=== PATIENT | female | born 1990 | race Caucasian/White ===

== ENCOUNTER 2016-08-28 09:26 | Emergency (ER) | payer BC ==
[2016-08-28] MEDS ORDERED: NS 0.9% 1000 ML* 1,000 ML IV ONE (09:47)
[2016-08-28 10:33] LABS: Hematocrit 38 % (35-47); Hemoglobin 12.8 g/dl (12.0-16.0); Mean Corpuscular HGB Conc 34 g/dl (31-36); Mean Corpuscular Hemoglobin 30 pg (27-31); Mean Corpuscular Volume 90 fL (80-97); Mean Platelet Volume 9 um3 (7.4-10.4); Red Blood Count 4.22 10^6/ul (4.0-5.4); Red Cell Distribution Width 13 % (10.5-15); White Blood Count 7.9 10^3/ul (3.5-10.8)
[2016-08-28 10:54] LABS: Urine Bacteria Absent (Absent)
--- NOTE | 2016-08-28 10:54 | RAD ---
INDICATION: Reported early . Bleeding COMPARISON: None TECHNIQUE: Transvaginal imaging was performed to assess possible early FINDINGS: In vitro stripe is mildly prominent measuring 1.9 cm There is no evidence of an intrauterine gestation and therefore in the setting of a positive test ectopic is not excluded. Suggest correlation with serial beta hCGs and follow-up ultrasonography. There is no adnexal mass. The right ovary measures 3.7 x 1.9 x 2.1 cm in the left 3.1 x 1.2 x 1.9 cm IMPRESSION: NO SONOGRAPHICALLY IDENTIFIABLE INTRAUTERINE GESTATION AND NO ADNEXAL MASS. SUGGEST CORRELATION WITH SERIAL BETA HCGS AND FOLLOW-UP SONOGRAPHY.
[2016-08-28 11:01] LABS: Albumin 3.9 g/dL (3.2-5.2); BUN/Creatinine Ratio 23.1 (8-20); C Reactive Protein 1.35 mg/L (< 5.00); Calcium 8.8 mg/dL (8.6-10.3); EGFR African American 117.7 (>60); EGFR Non-African American 91.5 (>60); Globulin 2.5 g/dL (2-4); Potassium 3.7 mmol/L (3.5-5.0); Total Bilirubin 0.3 mg/dL (0.2-1.0); Total Protein 6.4 g/dL (6.4-8.9)
[2016-08-28 11:02] LABS: Urine Bilirubin Negative (Negative); Urine Glucose Negative (Negative); Urine Nitrite Negative (Negative)
--- NOTE | 2016-08-28 12:24 | ED ---
Lisa Lopez Alok, scribed for Binh Santo MD on 08/28/16 at 1000 . - HPI Summary HPI Summary: 25 y/o female presents to the ED with abd cramping. This cramping is diffuse throughout the lower quadrant. Pt believes she is after taking home test (G/P/A = 2,1,0). Pt usually gets two menstrual periods per month and believes her LMP was either 07/30/16 or the end end June. Pt adds some vaginal bleeding and dizziness, but denies any N/V/D. Pt also denies tobacco, EtOH, or drug use. Pt states allergy to Amoxicillin. - History of Current Complaint Chief Complaint: EDUrogenitalProblems Stated Complaint: ABDOMINAL PAIN Time Seen by Provider: 08/28/16 09:42 Hx Obtained From: Patient Chief Complaint: Pain Onset/Duration: Started Hours Ago, Atraumatic, Still Present Timing: Constant Severity: Moderate Current Severity: Moderate Pain Intensity: 6 Location of Pain: Diffuse Character: Cramping Aggravating Factors: Nothing Alleviating Factors: Nothing Associated Signs and Symptoms: Positive: Vaginal Bleeding or Discharge, Other: - Dizziness. Negative: Nausea, Vomiting - Additional Pertinent History Maternal Blood Type and Rh: O Positive - Allergies/Home Medications Allergies/Adverse Reactions: Allergies Allergy/AdvReac Type Severity Reaction Status Date / Time Amoxicillin Allergy Hives Verified 08/28/16 09:37 Chocolate Allergy Rash Verified 08/28/16 09:37 Latex Allergy Hives Verified 08/28/16 09:37 PMH/Surg Hx/FS Hx/Imm Hx Endocrine/Hematology History: Denies: Hx Anticoagulant Therapy, Hx Blood Disorders, Hx Diabetes Cardiovascular History: Denies: Hx Congenital Heart Disease, Hx Deep Vein Thrombosis, Hx Hypertension , Hx Pacemaker/ICD Respiratory History: Reports: Hx Asthma Comment Only: Other Respiratory Problems/Disorders - mild asthma, no tx GI History: Denies: Hx Gastrointestinal Bleed, Hx Ulcer History: Denies: Hx Dialysis, Hx Renal Disease Sensory History: Denies: Hx Hearing Aid Neurological History: Reports: Hx Headaches, Other Neuro Impairments/Disorders - LYMES DISEASE, HEADACHES GETTING WORSE Psychiatric History: Reports: Hx Anxiety, Hx Depression - takes lexapro and wellbutrin Denies: Hx Panic Disorder, Hx Inpatient Treatment, Hx [facility] Tx - Surgical History Surgery Procedure, Year, and Place: TONSILECTOMY,OVARIAN CYST REMOVAL - Immunization History Date of Tetanus Vaccine: up to date Infectious Disease History: Denies: Hx Clostridium Difficile, Hx Hepatitis, Hx Human Immunodeficiency Virus (HIV), Hx of Known/Suspected MRSA, Traveled Outside the US in Last 30 Days - Family History Known Family History: Positive: Cardiac Disease - mom - Social History Occupation: Employed Full-time Lives: With Family - Mother Alcohol Use: Rare Substance Use Type: Reports: None Smoking Status (MU): Never Smoked Tobacco Review of Systems Negative: Fever Positive: Abdominal Pain. Negative: Vomiting, Diarrhea, Nausea Neurological: Other - Dizziness All Other Systems Reviewed And Are Negative: Yes Physical Exam - Summary Physical Exam Summary: VITAL SIGNS: Reviewed. GENERAL: ~Patient is a well developed and nourished female who is lying comfortable in the stretcher. ~Patient is not in any acute respiratory distress. HEAD AND FACE: Normocephalic EYES: PERRLA, EOMI x 2. EARS: Hearing grossly intact. MOUTH: Oropharynx within normal limits. NECK: Supple, trachea is midline, no adenopathy, no JVD, no carotid bruit. CHEST: Symmetric, no tenderness at palpation LUNGS: Clear to auscultation bilaterally. No wheezing or crackles. CVS: Regular rate and rhythm, S1 and S2 present, no murmurs or gallops appreciated. ABDOMEN: Soft, lower abdomen. No rebound. No guarding. EXTREMITIES: Full ROM in all major joints, no edema, no cyanosis or clubbing. NEURO: Alert and oriented x 3. No acute neurological deficits. Speech is normal and follows commands. SKIN: Dry and warm - Physical Exam Triage Information Reviewed: Yes Vital Signs On Initial Exam: Initial Vital Signs Temp 97.3 F 08/28/16 09:31 Pulse 75 08/28/16 09:31 Resp 16 08/28/16 09:31 BP 124/70 08/28/16 09:31 Pulse Ox 99 08/28/16 09:31 Vital Signs Reviewed: Yes Diagnostics - Vital Signs Vital Signs Temp Pulse Resp BP Pulse Ox 08/28/16 09:31 97.3 F 75 16 124/70 99 - Laboratory Lab Results: Lab Results 08/28/16 08/28/16 08/28/16 Range/Units 10:00 10:00 10:00 WBC 7.9 (3.5-10.8) 10^3/ul RBC 4.22 (4.0-5.4) 10^6/ul Hgb 12.8 (12.0-16.0) g/dl Hct 38 (35-47) % MCV 90 (80-97) fL MCH 30 (27-31) pg MCHC 34 (31-36) g/dl RDW 13 (10.5-15) % Plt Count 266 (150-450) 10^3/ul MPV 9 (7.4-10.4) um3 Neut % (Auto) 60.4 (38-83) % Lymph % (Auto) 31.1 (25-47) % [place] % (Auto) 7.1 (1-9) % Eos % (Auto) 0.7 (0-6) % Baso % (Auto) 0.7 (0-2) % Absolute Neuts (auto) 4.8 (1.5-7.7) 10^3/ul Absolute Lymphs (auto) 2.5 (1.0-4.8) 10^3/ul Absolute Monos (auto) 0.6 (0-0.8) 10^3/ul Absolute Eos (auto) 0.1 (0-0.6) 10^3/ul Absolute Basos (auto) 0.1 (0-0.2) 10^3/ul Absolute Nucleated RBC 0 10^3/ul Nucleated RBC % 0 Sodium 136 (133-145) mmol/L Potassium 3.7 (3.5-5.0) mmol/L Chloride 104 (101-111) mmol/L Carbon Dioxide 26 (22-32) mmol/L Anion Gap 6 (2-11) mmol/L BUN 18 (6-24) mg/dL Creatinine 0.78 (0.51-0.95) mg/dL Est GFR ( Amer) 117.7 (>60) Est GFR (Non-Af Amer) 91.5 (>60) BUN/Creatinine Ratio 23.1 H (8-20) Glucose 76 (70-100) mg/dL Lactic Acid (0.5-2.0) mmol/L Calcium 8.8 (8.6-10.3) mg/dL Total Bilirubin 0.30 (0.2-1.0) mg/dL AST 18 (13-39) U/L ALT 13 (7-52) U/L Alkaline Phosphatase 55 (34-104) U/L C-Reactive Protein 1.35 (< 5.00) mg/L Total Protein 6.4 (6.4-8.9) g/dL Albumin 3.9 (3.2-5.2) g/dL Globulin 2.5 (2-4) g/dL Albumin/Globulin Ratio 1.6 (1-3) Beta HCG, Quant 552.01 mIU/mL Urine Color Yellow Urine Appearance Clear Urine pH 7.0 (5-9) Ur Specific [place] 1.019 (1.010-1.030) Urine Protein Negative (Negative) Urine Ketones Negative (Negative) Urine Blood Negative (Negative) Urine Nitrate Negative (Negative) Urine Bilirubin Negative (Negative) Urine Urobilinogen Negative (Negative) Ur Leukocyte Esterase 1+ H (Negative) Urine WBC (Auto) Trace(0-5/hpf) (Absent) Urine RBC (Auto) Trace(0-2/hpf) (Absent) Ur Squamous Epith Cells Present H (Absent) Urine Bacteria Absent (Absent) Hyaline Casts Present H (Absent) Urine Glucose Negative (Negative) Urine Ascorbic Acid * H (Negative) Blood Type 08/28/16 08/28/16 Range/Units 10:00 10:00 WBC (3.5-10.8) 10^3/ul RBC (4.0-5.4) 10^6/ul Hgb (12.0-16.0) g/dl Hct (35-47) % MCV (80-97) fL MCH (27-31) pg MCHC (31-36) g/dl RDW (10.5-15) % Plt Count (150-450) 10^3/ul MPV (7.4-10.4) um3 Neut % (Auto) (38-83) % Lymph % (Auto) (25-47) % [place] % (Auto) (1-9) % Eos % (Auto) (0-6) % Baso % (Auto) (0-2) % Absolute Neuts (auto) (1.5-7.7) 10^3/ul Absolute Lymphs (auto) (1.0-4.8) 10^3/ul Absolute Monos (auto) (0-0.8) 10^3/ul Absolute Eos (auto) (0-0.6) 10^3/ul Absolute Basos (auto) (0-0.2) 10^3/ul Absolute Nucleated RBC 10^3/ul Nucleated RBC % Sodium (133-145) mmol/L Potassium (3.5-5.0) mmol/L Chloride (101-111) mmol/L Carbon Dioxide (22-32) mmol/L Anion Gap (2-11) mmol/L BUN (6-24) mg/dL Creatinine (0.51-0.95) mg/dL Est GFR ( Amer) (>60) Est GFR (Non-Af Amer) (>60) BUN/Creatinine Ratio (8-20) Glucose (70-100) mg/dL Lactic Acid 0.7 (0.5-2.0) mmol/L Calcium (8.6-10.3) mg/dL Total Bilirubin (0.2-1.0) mg/dL AST (13-39) U/L ALT (7-52) U/L Alkaline Phosphatase (34-104) U/L C-Reactive Protein (< 5.00) mg/L Total Protein (6.4-8.9) g/dL Albumin (3.2-5.2) g/dL Globulin (2-4) g/dL Albumin/Globulin Ratio (1-3) Beta HCG, Quant mIU/mL Urine Color Urine Appearance Urine pH (5-9) Ur Specific [place] (1.010-1.030) Urine Protein (Negative) Urine Ketones (Negative) Urine Blood (Negative) Urine Nitrate (Negative) Urine Bilirubin (Negative) Urine Urobilinogen (Negative) Ur Leukocyte Esterase (Negative) Urine WBC (Auto) (Absent) Urine RBC (Auto) (Absent) Ur Squamous Epith Cells (Absent) Urine Bacteria (Absent) Hyaline Casts (Absent) Urine Glucose (Negative) Urine Ascorbic Acid (Negative) Blood Type O Positive Result Diagrams: 08/28/16 10:00 08/28/16 10:00 Lab Statement: Any lab studies that have been ordered have been reviewed, and results considered in the medical decision making process. - Additional Comments Diagnostic Additional Comments: Transvaginal US - IMPRESSION: NO SONOGRAPHICALLY IDENTIFIABLE INTRAUTERINE GESTATION AND NO ADNEXAL MASS. SUGGEST CORRELATION WITH SERIAL BETA HCGS AND FOLLOW-UP SONOGRAPHY. Course/Dx - Course Course Of Treatment: 25 y/o female presents to the ED with abd cramping. This cramping is diffuse throughout the lower quadrant. Pt believes she is after taking home test (G/P/A = 2,1,0). Pt usually gets two menstrual periods per month and believes her LMP was either 07/30/16 or the end end June. Pt adds some vaginal bleeding and dizziness, but denies any N/V/D. Pt also denies tobacco, EtOH, or drug use. Pt states allergy to Amoxicillin. Assessment/Plan: Blood work wnl. UA contaminated. PCP will f/u cultures. Pelvic U/S IMPRESSION: NO SONOGRAPHICALLY IDENTIFIABLE INTRAUTERINE GESTATION AND NO ADNEXAL MASS. SUGGEST CORRELATION WITH SERIAL BETA HCGS AND FOLLOW-UP SONOGRAPHY. Discussed the case Dr. Guevara and she agrees with management. She recommends to discharge patient with f/u at [facility] with in the next couple days. She will need a repeat BHCG. She is O positive therefore she did not require Rhogam. She was given pelvic precautions. I discussed all the findings and test results with the patient. Patient was instructed to return to the emergency room immediately if any of the symptoms return or worsens. Plan of care was discussed with the patient and understands and agrees. All questions were answered at patient satisfaction. There were no further complaints or concerns. Lung exam before discharge: CTA B/L. Good air exchange. No wheezing or crackles heard. CVS: S1 and S2 present. No murmurs appreciated. Patient is alert and oriented x 3. Patient is hemodynamically stable. Patient will be discharged home with follow up [facility] in the next 2-3 days - Differential Diagnosis/HQI/PQRI: Incomplete , Missed , Spontaneous , Threatened - Diagnoses Provider Diagnoses: Threatened Discharge - Discharge Plan Condition: Stable Disposition: HOME Patient Education Materials: Threatened Miscarriage (ED) Referrals: Gerald Montes MD [Primary Care Provider] - Kenzie Guevara MD [Medical Doctor] - 3 Days Additional Instructions: Please follow up with OBGYN The documentation as recorded by the Lisa rg Alok accurately reflects the service I personally performed and the decisions made by me, Binh Santo MD.
[2016-08-28 12:39] VITALS: BP 114/63
== END 2016-08-28 12:38 | disposition home or self-care (01) ==
LOC: ED 09:26
DX: O20.0 Threatened abortion (principal); R10.9 Unspecified abdominal pain
CPT/HCPCS: 36415; 76817; 80053; 81003; 81015; 83605; 84702; 85025; 86140; 86900; 86901; 87086; 87480; 87510; 87661; 99282

== ENCOUNTER 2016-09-25 08:28 | Emergency (ER) | payer BC, OTHER ==
--- NOTE | 2016-09-25 09:23 | ED ---
Complex/Multi-Sys Presentation - HPI Summary HPI Summary: 9 week pt here w/ HINDS x 4 days - mild photosensitivity - denies h/ o migraines - no visual change. This has been accompanied by a feeling of flushing, followed by a sensation of thinking she may pass out. Intermittent. Has some ab cramping w/ spotting and an abnormal yellow d/c. Last sexually activity last week - unprotected w/ partner of 1 year. She denies h/o STD. She also notes LBP x 2 days - intermittent as well. Urinating more than usual but denies dysuria, urgency. 3 week h/o induced vomiting which just stopped 1 week ago. She has been eating okay. Last BM was this morning. She thought constipation may have been causing her sx and reports she has trouble w / her bowels so never has a full emptying. Denies fever, chills, diarrhea, URI sx, chest pain, shortness of breath, coughing, sharp/focal ab pain, rash, myalgias/arthralgias. She has established w/ OBGYN and had serum hcg as well as U/S - was told HR was low. Pt denies medical issues during previous and delivery. - History Of Current Complaint Chief Complaint: EDAbdPain Time Seen by Provider: 09/25/16 08:59 Hx Obtained From: Patient, Family/Consolidation Accountant - mom - Allergies/Home Medications Allergies/Adverse Reactions: Allergies Allergy/AdvReac Type Severity Reaction Status Date / Time Amoxicillin Allergy Hives Verified 08/28/16 09:37 Chocolate Allergy Rash Verified 08/28/16 09:37 Latex Allergy Hives Verified 08/28/16 09:37 PMH/Surg Hx/FS Hx/Imm Hx Previously Healthy: Yes Endocrine/Hematology History: Denies: Hx Anticoagulant Therapy, Hx Blood Disorders, Hx Diabetes, Hx Anemia , Hx Unexplained Bleeding Cardiovascular History: Denies: Hx Congenital Heart Disease, Hx Deep Vein Thrombosis, Hx Hypertension , Hx Pacemaker/ICD Respiratory History: Reports: Hx Asthma Comment Only: Other Respiratory Problems/Disorders - mild asthma, no tx GI History: Reports: Other GI Disorders - constipation Denies: Hx Crohn's Disease, Hx Gall Bladder Disease, Hx Gastroesophageal Reflux Disease, Hx Gastrointestinal Bleed, Hx Irritable Bowel, Hx Ulcer History: Denies: Hx Dialysis, Hx Kidney Infection, Hx Kidney Stones, Hx Renal Disease Sensory History: Denies: Hx Hearing Aid Neurological History: Reports: Hx Headaches, Other Neuro Impairments/Disorders - LYMES DISEASE, HEADACHES GETTING WORSE Psychiatric History: Reports: Hx Anxiety, Hx Depression - takes lexapro and wellbutrin Denies: Hx Panic Disorder, Hx Inpatient Treatment, Hx [facility] Tx - Surgical History Surgery Procedure, Year, and Place: TONSILECTOMY,OVARIAN CYST REMOVAL - Immunization History Date of Tetanus Vaccine: up to date Infectious Disease History: No Infectious Disease History: Denies: Hx Clostridium Difficile, Hx Hepatitis, Hx Human Immunodeficiency Virus (HIV), Hx of Known/Suspected MRSA, Traveled Outside the US in Last 30 Days - Family History Known Family History: Positive: Cardiac Disease - mom - Social History Occupation: Employed Full-time - [place] Lives: With Family - BF Alcohol Use: None - Hx Substance Use: No Substance Use Type: Reports: None Hx Tobacco Use: No Smoking Status (MU): Never Smoked Tobacco Review of Systems Constitutional: Negative Positive: Photophobia - see HPI. Negative: Blurred Vision, Diplopia, Drainage, Erythema ENT: Negative Cardiovascular: Negative Respiratory: Negative Gastrointestinal: Other - see HPI Positive: see HPI Musculoskeletal: Other - see HPI Skin: Negative Neurological: Other - see HPI Positive: Headache. Negative: Weakness, Paresthesia, Numbness, Syncope, Slurred Speech Psychological: Normal - concerned All Other Systems Reviewed And Are Negative: Yes Physical Exam Triage Information Reviewed: Yes Vital Signs On Initial Exam: Initial Vitals Temp Pulse Resp BP Pulse Ox 97.9 F 62 20 118/51 100 09/25/16 08:31 09/25/16 08:31 09/25/16 08:31 09/25/16 08:31 09/25/16 08:31 Vital Signs Reviewed: Yes Appearance: Positive: Well-Appearing, No Pain Distress, Well-Nourished Skin: Positive: Warm, Dry Head/Face: Positive: Normal Head/Face Inspection - sinuses NTTP Eyes: Positive: Normal, EOMI, KATELYN, Conjunctiva Clear. Negative: Conjunctiva Inflammed, Discharge ENT: Positive: Normal ENT inspection, Hearing grossly normal, Pharynx normal, TMs normal. Negative: Nasal congestion, Nasal drainage, Tonsillar swelling, Tonsillar exudate Neck: Positive: Supple, Nontender, No Lymphadenopathy Respiratory/Lung Sounds: Positive: Clear to Auscultation, Breath Sounds Present. Negative: Rales, Rhonchi, Wheezes Cardiovascular: Positive: Normal, RRR, Pulses are Symmetrical in both Upper and Lower Extremities, S1, S2. Negative: Murmur, Rub Abdomen Description: Positive: No Organomegaly, Soft, CVA Tenderness (R), Other : - Pt reports discomfort w/ every area palpated but states LUQ and RLQ are worst areas. Negative: CVA Tenderness (L) Bowel Sounds: Positive: Present Pelvic Exam: Positive: external exam normal, discharge - thick yellow d/c, tender w/ cervical motion. Negative: active bleeding - but appears to have mild blood tinging at os Musculoskeletal: Positive: Normal, Strength/ROM Intact Neurological: Positive: Normal, Sensory/Motor Intact, Alert, Oriented to Person Place, Time, CN Intact II-III Psychiatric: Positive: Normal Diagnostics - Vital Signs Vital Signs Temp Pulse Resp BP Pulse Ox 09/25/16 08:33 98.6 F 73 16 118/51 100 09/25/16 08:31 97.9 F 62 20 118/51 100 - Laboratory Result Diagrams: 09/25/16 09:55 09/25/16 09:55 Lab Statement: Any lab studies that have been ordered have been reviewed, and results considered in the medical decision making process. Re-Evaluation - Re-Evaluation First Eval Change: Unchanged - HINDS and flank pain are persisting Complex Multi-Symp Course/Dx Course Of Treatment: Pt presents w/ HINDS, fatigue, dizziness, ab pain/cramping and spotting. After w/u, she is found to have hypomagnesemia which may be the result of vomiting x 3 weeks as well as decreased appetite since . She was also found to have PID and + BV - initially treated with clindamycin. Spoke w/ Dr. Deras who advised no further tx and he will review cx's Wednesday. Pt advised to f/u w/ Dr. Deras as well. In regards to subchorionic hemmorrhage, advised bed rest until cleared by [place]. Reviewed danger s/sx of when to return to ED. - Diagnoses Differential Diagnoses/HQI/PQRI: Urinary Tract Infection, Other - STD, BV, PID, renal stone, dehydration 2ndry to vomiting x 3 weeks, constipation Provider Diagnoses: Bacterial vaginosis, Vaginal abbi, , Hypomagnesemia, Subchorionic hemorrhage in first trimester - Physician Notifications Discussed Care Of Patient With: Dr. Bojorquez. Dr. Deras Discharge - Discharge Plan Condition: Stable Disposition: HOME Patient Education Materials: Bacterial Vaginosis (ED), Vulvovaginal Candidiasis (ED), Hypomagnesemia (ED), (ED), Subchorionic Hemorrhage ( ED) Forms: *Work Release Referrals: Gerald Montes MD [Primary Care Provider] - Carlos Deras MD [Medical Doctor] - Additional Instructions: Stay hydrated Follow-up with OBGYN Wednesday. *If you develop vaginal bleeding with ab pain and cramping, you may be miscarrying - call OBGYN or return to ED if you cannot control symptoms with acetaminophen and rest.
[2016-09-25] MEDS ORDERED: NS 0.9% 1000 ML* 1,000 ML IV ONE (09:27)
[2016-09-25 10:12] LABS: Hematocrit 38 % (35-47); Hemoglobin 12.6 g/dl (12.0-16.0); Mean Corpuscular HGB Conc 33 g/dl (31-36); Mean Corpuscular Hemoglobin 31 pg (27-31); Mean Corpuscular Volume 91 fL (80-97); Mean Platelet Volume 10 um3 (7.4-10.4); Red Blood Count 4.12 10^6/ul (4.0-5.4); Red Cell Distribution Width 13 % (10.5-15); White Blood Count 8.8 10^3/ul (3.5-10.8)
[2016-09-25 10:22] LABS: Urine Bacteria Absent (Absent); Urine Bilirubin Negative (Negative); Urine Glucose Negative (Negative); Urine Nitrite Negative (Negative)
[2016-09-25 10:28] LABS: Albumin 3.5 g/dL (3.2-5.2); BUN/Creatinine Ratio 17.5 (8-20); C Reactive Protein 3.22 mg/L (< 5.00); Calcium 8.8 mg/dL (8.6-10.3); EGFR African American 150.6 (>60); EGFR Non-African American 117.1 (>60); Globulin 2.5 g/dL (2-4); Magnesium 1.7 mg/dL (1.9-2.7); Total Bilirubin 0.3 mg/dL (0.2-1.0)
[2016-09-25] MEDS ORDERED: Magnesium Oxide TAB* 400 MG PO ONE (10:46)
[2016-09-25] MEDS ORDERED: Acetaminophen TAB* 325 MG PO ONE (12:04)
--- NOTE | 2016-09-25 14:04 | RAD ---
HISTORY: Right flank pain, COMPARISONS: None relevant TECHNIQUE: Multiple transverse and longitudinal ultrasound images were obtained of the right kidney using grayscale and color Doppler imaging. FINDINGS: RIGHT KIDNEY: The right kidney is normal in shape, size, contour, and echogenicity. There is no hydronephrosis or nephrolithiasis. The right kidney measures 10.8 x 5.2 x 4.5 cm. LEFT KIDNEY: No images are submitted of the left kidney BLADDER: No images are submitted of the bladder. AORTA AND IVC: No images are submitted of the vasculature. RETROPERITONEUM: Unremarkable. OTHER: None. IMPRESSION: NO RIGHT HYDRONEPHROSIS OR NEPHROLITHIASIS
[2016-09-25] MEDS ORDERED: Clindamycin 600 MG IVPREMIX(* 600 MG/50 ML SDV IV ONE (14:09)
--- NOTE | 2016-09-25 14:14 | RAD ---
HISTORY: Assess heart rate. The gestational age by dates is: Not submitted COMPARISONS: August 28, 2016 TECHNIQUE: Multiple transverse and longitudinal ultrasound images were obtained of the pelvis using grayscale, color Doppler, spectral Doppler imaging and M-Mode Doppler imaging using the endovaginal transducer. FINDINGS: UTERUS: The uterus is normal in shape, size, contour, and echotexture. GESTATION: There is a single live intrauterine gestation. The crown-rump length measures 1.8 cm for a gestational age of 8 weeks, 3 days. The LUKE is May 04, 2017. cardiac motion is detected at a rate of 160 beats per minute. motion is not identified. anatomy cannot be assessed secondary to early dates. The amniotic fluid is qualitatively normal. There is a small subchorionic fluid collection measuring 0.4 x 0.4 x 0.5 CUL-DE-SAC: There is no free fluid within the cul-de-sac. RIGHT OVARY: The right ovary measures 2.8 x 1.1 x 2.4 cm. Normal arterial and venous waveforms are identifiable within the ovary on spectral Doppler imaging. LEFT OVARY: The left ovary measures 3.6 x 1.1 x 2.5 cm. Normal arterial and venous waveforms are identifiable within the ovary on spectral Doppler imaging. BLADDER: The visualized bladder is unremarkable. IMPRESSION: SINGLE LIVE INTRAUTERINE GESTATION AT 8 WEEKS AND 3 DAYS BY CROWN-RUMP LENGTH. SMALL SUBCHORIONIC HEMORRHAGE.
[2016-09-25 16:46] VITALS: BP 119/64
== END 2016-09-25 16:45 | disposition home or self-care (01) ==
LOC: ED 08:28
DX: O20.8 Other hemorrhage in early pregnancy (principal); R51 Headache; N76.0 Acute vaginitis; E83.42 Hypomagnesemia; Z3A.09 9 weeks gestation of pregnancy
CPT/HCPCS: 36415; 76775; 76815; 80053; 81003; 81015; 83605; 83690; 83735; 84702; 85025; 85610; 85730; 86140; 86850; 86900; 86901; 87086; 87480; 87510; 87661; 96360; 99283; A9270-GY

== ENCOUNTER 2017-12-06 15:11 | Emergency (ER) | payer BC ==
--- OUTSIDE RECORDS SUMMARY | 2017-12-06 15:17 | XMS REPORT ---
:1990 External Reference #:[id number] Author Organization [employer] Address [address] [place] [address] Phone [phone] Care Team Providers Name Role Phone Anna Torres MD Primary Care Physician Unavailable Payers Type Date Identification Numbers Payment Provider Subscriber Commercial Expires: Policy Number: [id number] [employer] Megan Henderson 2009 Medicaid PayID: [id number] [address] [address] [place] [address] Medigap Part B Effective: 2009 Policy Number: [id number] [employer] [place] Leonela Martinez Expires: 2011 PayID: [id number] [address] [place] [address] Medigap Part B Policy Number: [id number] [employer] Megan Henderson PayID: [id number] [address] [address] [place] [address] Problems Description No Information Family History Date Family Member(s) Problem(s) Comments Mother Heart Disease Mother Diabetes Social History Type Date Description Comments Marital Status Single ETOH Use Rarely consumes alcohol Smoking Patient has never smoked Exercise Type/Frequency Exercises regularly Allergies, Adverse Reactions, Alerts Date Description Reaction Status Severity Comments 12/01/2017 Chocolate active 12/01/2017 Latex active 12/01/2017 Amoxicillin rash active Medications Medication Date Status Form Strength Qnty SIG Indications Ordering Provider IUD 12/02/19 Marianne Melo M.D. Adderall Active Tablets 30mg 1 by mouth Unknown 00 twice a day Pamelor 03/09/20 Hx Capsules 10mg 60caps 1-2 caps Katharine Ramsay 12 every night lino Parnell M.D. Vital Signs Date Vital Result Comment 12/01/2017 Height 65 inches 5'5" Weight 112.00 lb Heart Rate 68 /min BP Systolic 114 mmHg BP Diastolic 60 mmHg Respiratory Rate 16 /min Body Temperature 97.8 F BMI (Body Mass Index) 18.6 kg/m2 Results Description No Information Procedures Date CPT Code Description Status 11/19/2017 Mammogram Completed 07/01/2009 09967 Rad Exam; Foot Comp Completed 06/13/2009 72380 Walking Cast Completed 06/06/2009 14349 Rad Exam; Foot Comp Completed 06/06/2009 67767 FX Tarsal Care Completed Encounters Type Date Location Provider CPT E/M Dx Office Visit 03/09/2012 [facility] Katharine GastonJossie [place], [address] 784.0 8:45a [facility] 088.81 Office Visit 08/08/2009 3:45p [facility] [place] [address] 845.00 C.M.A. Office Visit 07/31/2009 3:30p [facility] [place] [address] 845.10 C.M[facility]A. Office Visit 05/29/2009 9:00a [facility] Scal[facility] M.D. 14081 727.09 C.M.A. Office Visit 05/08/2009 3:15p [facility] [place] [address] 726.5 C.M.A. 719.65 733.95 Office Visit 04/11/2009 1:00p [facility] [place] [address] 719.65 C.M.A. Plan of Care 12/01/2017 - Mike Melo M.D.N60.21 Fibroadenosis of right breastFollow up: As needed
--- NOTE | 2017-12-06 15:24 | UC ---
Respiratory Complaint HPI - HPI Summary HPI Summary: 27 yo female presents with sinus pain/pressure/congestion, b/l ear pain, sore throat, and dry cough getting progressively worse over the last 5 days. She has not been taking anything OTC. Denies fever, chills, SOB, chest pain, abdominal pain, n/v. - History of Current Complaint Stated Complaint: URI COMPLAINT Time Seen by Provider: 12/06/17 15:24 Hx Obtained From: Patient Onset/Duration: Gradual Onset Severity Initially: Moderate Severity Currently: Severe Pain Intensity: 9 Pain Scale Used: 0-10 Numeric Character: Cough: Nonproductive - Allergies/Home Medications Allergies/Adverse Reactions: Allergies Allergy/AdvReac Type Severity Reaction Status Date / Time amoxicillin Allergy Hives Verified 12/06/17 15:33 PMH/Surg Hx/FS Hx/Imm Hx - Additional Past Medical History Additional PMH: ADHD Previously Healthy: Yes Other History Of: Negative For: Anticoagulant Therapy - Surgical History Surgical History: Yes Surgery Procedure, Year, and Place: TONSILECTOMY,OVARIAN CYST REMOVAL - Family History Known Family History: Positive: Cardiac Disease - mom - Social History Occupation: Employed Full-time Lives: With Family Alcohol Use: None - Substance Use Type: None Smoking Status (MU): Never Smoked Tobacco - Immunization History Most Recent Influenza Vaccination: never Most Recent Tetanus Shot: unk Most Recent Pneumonia Vaccination: never Review of Systems Constitutional: Fatigue Skin: Negative Eyes: Negative ENT: Sore Throat, Ear Ache, Nasal Discharge, Sinus Congestion, Sinus Pain/ Tenderness Respiratory: Cough Cardiovascular: Negative Gastrointestinal: Negative Neurovascular: Negative Neurological: Negative Psychological: Negative All Other Systems Reviewed And Are Negative: Yes Physical Exam - Summary Physical Exam Summary: GENERAL: NAD. WDWN. No pain distress. SKIN: No rashes, sores, lesions, or open wounds. HEENT: Head: AT/NC Eyes: EOM intact. Conjunctiva clear without inflammation or discharge. Ears: Hearing grossly normal. TMs intact, no bulging, erythema, or edema. Nose: Nasal mucosa mildly swollen and erythematous with yellow/ clear discharge. TTP maxillary and frontal sinus. Throat: Posterior oropharynx without exudates, erythema, or tonsillar enlargement. Uvula midline. NECK: Supple. Nontender. No lymphadenopathy. CHEST: CTAB. No r/r/w. No accessory muscle use. Breathing comfortably and in no distress. CV: RRR. Without m/r/g. Pulses intact. Brisk cap refill. NEURO: Alert. CN II-XII grossly intact. PSYCH: Age appropriate behavior. Triage Information Reviewed: Yes Vital Signs: Vital Signs: Temp Pulse Resp BP Pulse Ox 98.0 F 92 20 99/56 99 12/06/17 15:29 12/06/17 15:29 12/06/17 15:29 12/06/17 15:29 12/06/17 15:29 Respiratory Course/Dx - Course Course Of Treatment: Sinusitis - Differential Dx/Diagnosis Provider Diagnoses: Sinusitis Discharge - Sign-Out/Discharge Documenting (check all that apply): Patient Departure - Discharge Plan Condition: Stable Disposition: HOME Patient Education Materials: Sinusitis (ED) Referrals: Gerald Montes MD [Primary Care Provider] - Additional Instructions: If you develop a fever, shortness of breath, chest pain, new or worsening symptoms - please call your PCP or go to the ED. - Billing Disposition and Condition Condition: STABLE Disposition: Home
[2017-12-06 15:32] VITALS: BP 99/56
== END 2017-12-06 15:42 | disposition home or self-care (01) ==
LOC: UCEAST 15:11
DX: J32.9 Chronic sinusitis, unspecified (principal); Z88.0 Allergy status to penicillin
CPT/HCPCS: 99212; G0463

== ENCOUNTER 2018-03-30 14:51 | Emergency (ER) | payer BC, OTHER ==
[2018-03-30 16:30] VITALS: BP 124/89
--- NOTE | 2018-03-30 18:19 | ED ---
- HPI Summary HPI Summary: Pt. is a 27 y.o female who presents to the ER for possible blood exposure. 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 Pt. states source pt. was being dc from hospital and where iv was placed started to bleed and got onto pt.'s right hand. Pt. states she has small cuts to hand where blood was. Pt. states she washed her hands and presented to ER. Incident occurred just prior to arrival. Pt. as no past medical hx. Immunizations are up to date. Pt. unsure of source pt.'s hx but does not believe it is concerning. Sxs are mild in severity. No current modifying factors. - History of Current Complaint Chief Complaint: EDExposureBodyFluid Stated Complaint: BLOOD WORKC Time Seen by Provider: 03/30/18 15:51 PMH/Surg Hx/FS Hx/Imm Hx Previously Healthy: Yes Endocrine/Hematology History: Denies: Hx Anticoagulant Therapy, Hx Blood Disorders, Hx Diabetes, Hx Anemia , Hx Unexplained Bleeding Cardiovascular History: Denies: Hx Congenital Heart Disease, Hx Deep Vein Thrombosis, Hx Hypertension , Hx Pacemaker/ICD Respiratory History: Reports: Hx Asthma Comment Only: Other Respiratory Problems/Disorders - mild asthma, no tx GI History: Reports: Other GI Disorders - constipation Denies: Hx Crohn's Disease, Hx Gall Bladder Disease, Hx Gastroesophageal Reflux Disease, Hx Gastrointestinal Bleed, Hx Irritable Bowel, Hx Ulcer History: Denies: Hx Dialysis, Hx Kidney Infection, Hx Kidney Stones, Hx Renal Disease Sensory History: Denies: Hx Hearing Aid Neurological History: Reports: Hx Headaches, Other Neuro Impairments/Disorders - LYMES DISEASE, HEADACHES GETTING WORSE Psychiatric History: Reports: Hx Anxiety, Hx Depression - takes lexapro and wellbutrin Denies: Hx Panic Disorder, Hx Inpatient Treatment, Hx Community Mental Health Tx - Cancer History Hx Chemotherapy: No Hx Radiation Therapy: No - Surgical History Surgery Procedure, Year, and Place: TONSILECTOMY,OVARIAN CYST REMOVAL - Immunization History Date of Tetanus Vaccine: up to date Infectious Disease History: No Infectious Disease History: Denies: Hx Clostridium Difficile, Hx Hepatitis, Hx Human Immunodeficiency Virus (HIV), Hx of Known/Suspected MRSA, Traveled Outside the [place] in Last 30 Days - Family History Known Family History: Positive: Cardiac Disease - mom - Social History Occupation: Employed Full-time Lives: With Family Alcohol Use: Rare Hx Substance Use: No Substance Use Type: Reports: None Hx Tobacco Use: No Smoking Status (MU): Never Smoked Tobacco Review of Systems Positive: Other - Blood exposure to right hand All Other Systems Reviewed And Are Negative: Yes Physical Exam Triage Information Reviewed: Yes Vital Signs On Initial Exam: Initial Vitals Temp Pulse Resp BP Pulse Ox 98.7 F 94 16 139/70 100 03/30/18 15:07 03/30/18 15:07 03/30/18 15:07 03/30/18 15:07 03/30/18 15:07 Vital Signs Reviewed: Yes Appearance: Positive: Well-Appearing - Pt. sitting in chair in NAD. Examined in hallway. Friend present. Skin: Positive: Warm, Dry, Other - Very small, superficial abrasions noted to right dorsal hand and digits. Head/Face: Positive: Normal Head/Face Inspection Eyes: Positive: Normal, EOMI Neck: Positive: Supple Neurological: Positive: Normal, CN Intact II-III Psychiatric: Positive: Affect/Mood Appropriate Diagnostics - Vital Signs Vital Signs Temp Pulse Resp BP Pulse Ox 03/30/18 16:28 98.2 F 88 16 124/89 99 03/30/18 15:07 98.7 F 94 16 139/70 100 - Laboratory Lab Results: Lab Results 03/30/18 Range/Units 15:47 HIV 1&2 Antibody Rapid Nonreactive (Nonreactive) Lab Statement: Any lab studies that have been ordered have been reviewed, and results considered in the medical decision making process. Needlestick Course/Dx - Course Course Of Treatment: Pt. presenting for evaluation after getting blood on her right hand. She has extremely small abrasions to right hand. Pt.'s purification supervisor is working on contacting source pt. for blood draw. Pt.'s exposure is extremely low risk for transmission. Pt. declines prophylactic treatment. Blood work obtained. Pt. will f.u with employee health and ID for testing results and potential further testing and treatment. Pt. understands and agrees with plan. - Diagnoses Provider Diagnoses: Exposure to blood or body fluid Discharge - Sign-Out/Discharge Documenting (check all that apply): Patient Departure - Discharge Plan Condition: Good Disposition: HOME Patient Education Materials: Needle Stick Injuries (ED) Referrals: Gerald Montes MD [Primary Care Provider] - Eri GALVEZ,Gilles Ralph [Medical Doctor] - employee [facility] [[employer].BUSINESS, APPLICATION, OTHER] - Additional Instructions: Follow up with employee health and Dr. Hwang for blood results and potential further testing and treatment - Billing Disposition and Condition Condition: GOOD Disposition: Home
== END 2018-03-30 16:28 | disposition home or self-care (01) ==
LOC: ED 14:51
DX: Z77.21 Contact with and (suspected) exposure to potentially hazardous body fluids (principal); F41.9 Anxiety disorder, unspecified; F32.9 Major depressive disorder, single episode, unspecified
CPT/HCPCS: 36415; 86703; 86706; 86803; 87340; 99282

== ENCOUNTER → 2018-05-25 14:05 | Emergency (ER) | payer BC, OTHER ==
[~2018-05-25 14:05] MED LIST: Ketorolac INJ* 30 MG/ML 1 ML VIAL IV PUSH ONE; Metoclopramide IV* 5 MG/ML 2 ML VIAL IV ONE; NS 0.9% 1000 ML* 2,000 ML IV ONE; diPHENhydraMINE PO* 50 MG PO ONE
--- NOTE | 2018-05-25 15:24 | ED ---
Headache - HPI Summary HPI Summary: A 27 y/o female presents to [facility] with a chief complaint of headache since 05/21. She rates her pain as a 9/10. Per mother, her pain was worse on 05/24/18 than it is on 05/25/18. Her headache is bifrontal and radiates to the occipital area. She describes her headache as like "my brain is trying to come out of my eyes". She also c/o photophobia, fatigue, dizziness, hot sweats, claims that her eyes are puffy and bloodshot and notes that she feels like she has to urinate every 10 minutes. She denies fever, CP, SOB, abd pain, N/V, cough, rash , sore throat, ear ache and has runny nose. Standing up worsens her pain. Nothing alleviates her pain. She has tried Excedrin and ibuprofen but that has not alleviated her pain. Her sister has a Hx of migraines. SHx ovarian cyst removed, tonsillectomy. The patient has been using Mirena IUD for 1 year and 4 months. Her home medications are Wellbutrin and Adderal. She claims that she is allergic to Amoxicillin, getting a rash. Vital signs while in room: HR: 95 bpm, BP:135/80. - History Of Current Complaint Chief Complaint: EDHeadache Stated Complaint: HEADACHE FOR 5DAYS Time Seen by Provider: 05/25/18 14:58 Hx Obtained From: Patient, Family/Psychiatric Therapist - Mother Onset/Duration: Sudden Onset, Started days ago, Still Present Initially Headache Was: Severe - Headache was worse on 05/24/18 Currently Pain Is: Current Pain Scale(0-10)= - 9 Timing: Constant, Days Character: Unable To Describe - "brain is trying to come out of my eyes" Location of Headache: Frontal - bifrontal Radiates to: occipital area Aggravating Factor: Nothing Allevating Factors: Nothing Associated Signs And Symptoms: Negative - fever, CP, SOB, abd pain, N/V, cough, rash, sore throat, Dizziness, Other (Noted In Comments) - Positive: photophobic , fatigue, hot sweats, eyes are puffy and bloodshot, she feels like she has to "urinate every 10 minutes" - Allergies/Home Medications Allergies/Adverse Reactions: Allergies Allergy/AdvReac Type Severity Reaction Status Date / Time amoxicillin AdvReac Hives Verified 05/25/18 14:18 Home Medications: Home Medications Bupropion XL* [Wellbutrin XL *] 300 mg PO DAILY 05/25/18 [History Confirmed 07/12] Dextroamphetamine/Amphetamine [Adderall Xr 30 mg Capsule] 30 mg PO QAM 05/25/18 [History Confirmed 05/25/18] PMH/Surg Hx/FS Hx/Imm Hx Endocrine/Hematology History: Denies: Hx Anticoagulant Therapy, Hx Blood Disorders, Hx Diabetes, Hx Anemia , Hx Unexplained Bleeding Cardiovascular History: Denies: Hx Congenital Heart Disease, Hx Deep Vein Thrombosis, Hx Hypertension , Hx Pacemaker/ICD Respiratory History: Reports: Hx Asthma Comment Only: Other Respiratory Problems/Disorders - mild asthma, no tx GI History: Reports: Other GI Disorders - constipation Denies: Hx Crohn's Disease, Hx Gall Bladder Disease, Hx Gastroesophageal Reflux Disease, Hx Gastrointestinal Bleed, Hx Irritable Bowel, Hx Ulcer History: Denies: Hx Dialysis, Hx Kidney Infection, Hx Kidney Stones, Hx Renal Disease Sensory History: Denies: Hx Hearing Aid Neurological History: Reports: Hx Headaches, Other Neuro Impairments/Disorders - LYMES DISEASE, HEADACHES GETTING WORSE Psychiatric History: Reports: Hx Anxiety, Hx Depression - takes lexapro and wellbutrin Denies: Hx Panic Disorder, Hx Inpatient Treatment, Hx Community Mental Health Tx - Cancer History Hx Chemotherapy: No Hx Radiation Therapy: No - Surgical History Surgery Procedure, Year, and Place: TONSILECTOMY,OVARIAN CYST REMOVAL - Immunization History Date of Tetanus Vaccine: up to date Infectious Disease History: No Infectious Disease History: Denies: Hx Clostridium Difficile, Hx Hepatitis, Hx Human Immunodeficiency Virus (HIV), Hx of Known/Suspected MRSA, Traveled Outside the [place] in Last 30 Days - Family History Known Family History: Positive: Cardiac Disease - mom, Other - Migraines from sister - Social History 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 Negative: Fever Eyes: Other - positive: eyes puffy and bloodshot Positive: Photophobia ENT: Negative - runny nose Negative: Sore Throat, Ear Ache Negative: Chest Pain Negative: Shortness Of Breath, Cough Negative: Abdominal Pain, Vomiting, Nausea Positive: other - positive: urinary frequency every 10 minutes Negative: Rash Neurological: Other - positive: dizziness Positive: Headache All Other Systems Reviewed And Are Negative: Yes Physical Exam - Summary Physical Exam Summary: Appearance: Well-appearing, moderate pain distress, well-nourished Skin: Warm, color reflects adequate perfusion, dry Head: Normal Head/Face inspection, atraumatic Eyes: Conjunctiva clear, PERRL, EOMI, ENT: TMs are normal bilaterally, pharynx is normal Neck: Supple, no nodes, no JVD Respiratory: Lungs clear, normal breath sounds, no respiratory distress Cardio: RRR, No murmur, pulses normal, brisk capillary refill Abdomen: Soft, nontender Bowel sounds: Present Musculoskeletal: Strength Intact/ROM intact, no calf tenderness, no edema. Psychological: Normal Neuro: Alert, muscle tone normal, no focal deficit Triage Information Reviewed: Yes Vital Signs On Initial Exam: Initial Vitals Temp Pulse Resp BP Pulse Ox 98.9 F 110 15 124/90 100 05/25/18 14:14 05/25/18 14:14 05/25/18 14:14 05/25/18 14:14 05/25/18 14:14 Vital Signs Reviewed: Yes - [place] Coma Scale Best Eye Response: 4 - Spontaneous Best Motor Response: 6 - Obeys Commands Best Verbal Response: 5 - Oriented Coma Scale Total: 15 Diagnostics - Vital Signs Vital Signs Temp Pulse Resp BP Pulse Ox 05/25/18 15:00 93 100 05/25/18 14:58 97 100 05/25/18 14:56 134/75 05/25/18 14:14 98.9 F 110 15 124/90 100 - Laboratory Result Diagrams: 05/25/18 15:28 05/25/18 15:28 Lab Statement: Any lab studies that have been ordered have been reviewed, and results considered in the medical decision making process. Re-Evaluation - Re-Evaluation First Eval Re-Evaluation Time: 17:30 Change: Improved Comment: Patient's pain is better but not relieved. Patient agrees to discharge. She does not want a narcotic but agrees to Tramadol. Headache Course/Dx - Course Course Of Treatment: A 27 y/o female presents to [facility] with a chief complaint of headache since 05/21/18. She rates her pain as 9/10. She also c/o fatigue, dizziness, photophobia, her eyes being puffy and bloodshot and having to urinate "every 10 minutes". In the ED course the patient was given 50 mg Benadryl PO, 30mg Toradol IV, 10mg Reglan IV. Influenza A and B are negative. Dx : acute headache. She will be discharged. Strict return precautions given. She was instructed to follow up with Dr. Montes in 2 days. Patient agrees to discharge. She does not want a narcotic but agrees to Tramadol. - Diagnoses Provider Diagnoses: Acute headache Discharge - Sign-Out/Discharge Documenting (check all that apply): Patient Departure - DC - Discharge Plan Condition: Stable Disposition: HOME Prescriptions: traMADol TAB* [Ultram*] 50 mg PO Q6HR PRN #12 tab MDD 4 PRN Reason: Pain Patient Education Materials: Acute Headache (ED) Forms: *Work Release Referrals: Gerald Montes MD [Primary Care Provider] - 2 Days (2) Additional Instructions: You were given toradol 30mg IV, reglan 10mg IV and benadryl 50mg orally with some relief of your pain. Your labs did not show any serious abnormalities. Your monospot was negative. You may try tramadol 50 mg four times a day as needed for pain. Return to the ER if you have new or worsening symptoms. - Attestation Statements Document Initiated by Scribe: Yes Documenting Scribe: John Babin Provider For Whom Scribe is Documenting (Include Credential): Dr. Darlyn Vaughn MD Scribe Attestation: John Lopez, scribed for Dr. Darlyn Vaughn MD on 05/25/18 at [id number].
[2018-05-25 15:31] LABS: Urine Appearance Clear; Urine Bilirubin Negative (Negative); Urine Blood Negative (Negative); Urine Color Straw; Urine Glucose Negative (Negative); Urine Ketones Negative (Negative); Urine Nitrite Negative (Negative); Urine Protein Negative (Negative); Urine Specific Gravity 1.005 (1.010-1.030); Urine Urobilinogen Negative (Negative)
[2018-05-25 15:41] LABS: ABS Basophils 0 10^3/ul (0-0.2); ABS Eosinophils 0 10^3/ul (0-0.6); ABS Monocytes 0.5 10^3/ul (0-0.8); ABS Neutrophils 4.6 10^3/ul (1.5-7.7); ABS Nucleated RBC 0 10^3/ul; Eosinophil % 0.4 %; Hematocrit 38 % (35-47); Lymphocyte % 28.3 %; Mean Corpuscular HGB Conc 34 g/dl (31-36); Mean Corpuscular Hemoglobin 32 pg (27-31); Mean Corpuscular Volume 95 fL (80-97); Mean Platelet Volume 8.7 fL (7.4-10.4); Nucleated Red Blood Cells % 0; Platelet Count 242 10^3/ul (150-450); Red Blood Count 4.05 10^6/ul (4.00-5.40); Red Cell Distribution Width 12 % (10.5-15); White Blood Count 7.2 10^3/ul (3.5-10.8)
[2018-05-25 15:48] LABS: Barbiturates Urine Screen None Detected (None Detect); Benzodiazepine Urine Screen None Detected (None Detect); Urine Cannabinoids Screen None Detected (None Detect)
[2018-05-25 15:58] LABS: ALT 21 U/L (7-52); AST 19 U/L (13-39); Albumin/Globulin Ratio 2.1 (1-3); Alkaline Phosphatase 39 U/L (34-104); Anion Gap 4 mmol/L (2-11); BUN/Creatinine Ratio 15.1 (8-20); Blood Urea Nitrogen 14 mg/dL (6-24); C Reactive Protein < 1.00 mg/L (<8.01); CO2 Carbon Dioxide 29 mmol/L (22-32); Calcium 8.8 mg/dL (8.6-10.3); Chloride 107 mmol/L (101-111); EGFR Non-African American 73.5 (>60); Globulin 1.9 g/dL (2-4); Glucose 85 mg/dL (70-100); Potassium 3.7 mmol/L (3.5-5.0); Sodium 140 mmol/L (135-145); Total Protein 5.9 g/dL (6.4-8.9)
[2018-05-25 16:16] LABS: Activated Partial Thrombo Time 31.4 seconds (26.0-36.3); INR 1.04 (0.77-1.02)
[2018-05-25 16:18] LABS: Erythrocyte Sed Rate 3 mm/Hr (0-14)
[2018-05-25 18:02] VITALS: BP 128/61
[2018-05-27 14:41] LABS: EBV Capsid Ag IgG Ab Positive (Negative); EBV Capsid Ag IgM Ab Negative (Negative); Epstein-Barr Nuclear Antigen Positive (Negative)
== END | disposition home or self-care (01) ==
LOC: ED 14:05
DX: R51 Headache (principal); F41.9 Anxiety disorder, unspecified; F32.9 Major depressive disorder, single episode, unspecified; Z88.0 Allergy status to penicillin
CPT/HCPCS: 36415; 80053; 80307; 81003; 83605; 85025; 85610; 85652; 85730; 86140; 86308; 86664; 86665; 96374; 96375; 99283; A9270-GY; J1885; J2765

== ENCOUNTER 2018-06-10 08:56 | Emergency (ER) | payer BC ==
[2018-06-10 09:22] VITALS: BP 124/70
--- NOTE | 2018-06-10 09:52 | UC ---
Throat Pain/Nasal Denny HPI - HPI Summary HPI Summary: The patient is a 27-year-old female that is been ill for approximately 2 weeks she was seen in the ER 2 weeks ago for headache. She has had intermittent headaches and some sore throat and fatigue. She denies any fever. Sore throat has worsened over the past few days. He is very low energy. She has had her tonsils removed. She denies any history of mononucleosis. Today she developed a fine non-pruritic rash on her chest. - History of Current Complaint Chief Complaint: UCRespiratory Stated Complaint: SORE THROAT Time Seen by Provider: 06/10/18 09:07 Hx Obtained From: Patient Hx Last Menstrual Period: mirena implant Onset/Duration: Gradual Onset, Lasting Weeks Severity: Moderate Pain Intensity: 7 Pain Scale Used: 0-10 Numeric Cough: None Related History: Prior ENT Surgery, T & A - Epiglottits Risk Factors Epiglottis Risk Factors: Negative - Allergies/Home Medications Allergies/Adverse Reactions: Allergies Allergy/AdvReac Type Severity Reaction Status Date / Time amoxicillin AdvReac Hives Verified 06/10/18 09:22 PMH/Surg Hx/FS Hx/Imm Hx Previously Healthy: Yes Other History Of: Negative For: Anticoagulant Therapy - Surgical History Surgical History: Yes Surgery Procedure, Year, and Place: TONSILLECTOMY,OVARIAN CYST REMOVAL - Family History Known Family History: Positive: Cardiac Disease - mom, Other - Migraines, sister - Social History Alcohol Use: Rare Substance Use Type: None Smoking Status (MU): Never Smoked Tobacco Household Exposure Type: Cigarettes - Immunization History Most Recent Influenza Vaccination: never Most Recent Tetanus Shot: unk Most Recent Pneumonia Vaccination: never Review of Systems All Other Systems Reviewed And Are Negative: Yes Constitutional: Positive: Fatigue Skin: Positive: Rash Eyes: Positive: Negative ENT: Positive: Sore Throat, Sinus Congestion Respiratory: Positive: Negative Cardiovascular: Positive: Negative Gastrointestinal: Positive: Negative Genitourinary: Positive: Negative Motor: Positive: Negative Neurovascular: Positive: Negative Musculoskeletal: Positive: Negative Neurological: Positive: Negative Psychological: Positive: Negative Physical Exam Triage Information Reviewed: Yes Appearance: Well-Appearing, No Pain Distress, Well-Nourished Vital Signs: Initial Vital Signs Temp 99.4 F 06/10/18 09:18 Pulse 101 06/10/18 09:18 Resp 18 06/10/18 09:18 BP 124/70 06/10/18 09:18 Pulse Ox 100 06/10/18 09:18 Eye Exam: Normal Eyes: Positive: Conjunctiva Clear ENT: Positive: Hearing grossly normal, Pharyngeal erythema, Nasal congestion, TMs normal. Negative: Nasal drainage, Tonsillar swelling, Tonsillar exudate, Trismus, Muffled voice, Hoarse voice, Sinus tenderness, Uvula midline Dental Exam: Normal Neck: Positive: Supple, Nontender, No Lymphadenopathy Respiratory: Positive: Lungs clear, Normal breath sounds, No respiratory distress, No accessory muscle use Cardiovascular: Positive: No Murmur, Pulses Normal Abdomen Description: Positive: Nontender, No Organomegaly Musculoskeletal: Positive: ROM Intact, No Edema Neurological: Positive: Alert Psychological Exam: Normal Skin Exam: Other - fine maculo-papular red rash on chest Diagnostics - Laboratory Diagnostic Studies Completed/Ordered: strep (-) Throat Pain/Nasal Course/Dx - Differential Dx/Diagnosis Provider Diagnosis: Viral URI, Fatigue Discharge - Sign-Out/Discharge Documenting (check all that apply): Patient Departure All imaging exams completed and their final reports reviewed: No Studies - Discharge Plan Condition: Stable Disposition: HOME Prescriptions: predniSONE [Prednisone 20 MG TAB] 60 mg PO DAILY #9 tab Patient Education Materials: Viral Syndrome (ED), Fatigue (ED) Referrals: Gerald Montes MD [Primary Care Provider] - 3 Days (if not better) Additional Instructions: strep test (-) blood count and monospot pending rest fluids tylenol - Billing Disposition and Condition Condition: STABLE Disposition: Home
[2018-06-10 12:23] LABS: ABS Basophils 0 10^3/ul (0-0.2); ABS Eosinophils 0.1 10^3/ul (0-0.6); ABS Lymphocytes 1.9 10^3/ul (1.0-4.8); ABS Monocytes 0.8 10^3/ul (0-0.8); ABS Neutrophils 7.1 10^3/ul (1.5-7.7); ABS Nucleated RBC 0 10^3/ul; Eosinophil % 1.1 %; Hematocrit 42 % (35-47); Hemoglobin 14.3 g/dl (12.0-16.0); Lymphocyte % 18.8 %; Mean Corpuscular HGB Conc 34 g/dl (31-36); Mean Corpuscular Hemoglobin 32 pg (27-31); Mean Corpuscular Volume 94 fL (80-97); Mean Platelet Volume 9.2 fL (7.4-10.4); Nucleated Red Blood Cells % 0; Platelet Count 249 10^3/ul (150-450); Red Blood Count 4.45 10^6/ul (4.00-5.40); Red Cell Distribution Width 12 % (10.5-15)
--- NOTE | 2018-06-11 08:07 | UC ---
- Progress Note Progress Note: lab results June 11, [address]: negative No elevated WBC RS: negative Call patient to check on rash and temperature; negative mono report. Mike Hernandez MD Course/Dx - Diagnoses Provider Diagnoses: Viral URI, Fatigue Discharge - Sign-Out/Discharge Documenting (check all that apply): Post-Discharge Follow Up All imaging exams completed and their final reports reviewed: No Studies - Discharge Plan Condition: Stable Disposition: HOME Prescriptions: predniSONE [Prednisone 20 MG TAB] 60 mg PO DAILY #9 tab Patient Education Materials: Viral Syndrome (ED), Fatigue (ED) Referrals: Gerald Montes MD [Primary Care Provider] - 3 Days (if not better) Additional Instructions: strep test (-) blood count and monospot pending rest fluids tylenol - Billing Disposition and Condition Condition: STABLE Disposition: Home
== END 2018-06-10 10:17 | disposition home or self-care (01) ==
LOC: UCEAST 08:56
DX: J06.9 Acute upper respiratory infection, unspecified (principal); R53.83 Other fatigue; Z88.0 Allergy status to penicillin
CPT/HCPCS: 36415; 85025; 86308; 87651; 99211; G0463

== ENCOUNTER 2019-06-13 08:00 | Emergency (ER) | payer BC, OTHER ==
--- NOTE | 2019-06-13 08:33 | ED ---
Lower Extremity - HPI Summary HPI Summary: Patient is a 28-year-old female who presents emergency department for an isolated right foot injury that occurred 3 days ago. Patient states she slid down railing of stairs and injured right foot and ankle. Denies LOC or any other injuries. Able to ambulate with pain. Sxs are mild in severity. Walking makes sxs worse. Rest makes sxs better. - History of Current Complaint Chief Complaint: EDExtremityLower Stated Complaint: R FOOT PAIN PER PT Time Seen by Provider: 06/13/19 08:25 Hx Obtained From: Patient Hx Last Menstrual Period: mirena implant Pain Intensity: 6 - Allergies/Home Medications Allergies/Adverse Reactions: Allergies Allergy/AdvReac Type Severity Reaction Status Date / Time chocolate flavor Allergy GI Upset Verified 06/13/19 08:07 amoxicillin AdvReac Hives Verified 06/10/18 09:22 PMH/Surg Hx/FS Hx/Imm Hx Previously Healthy: Yes Endocrine/Hematology History: Denies: Hx Anticoagulant Therapy, Hx Blood Disorders, Hx Diabetes, Hx Anemia , Hx Unexplained Bleeding Cardiovascular History: Denies: Hx Congenital Heart Disease, Hx Deep Vein Thrombosis, Hx Hypertension , Hx Pacemaker/ICD Respiratory History: Reports: Hx Asthma Comment Only: Other Respiratory Problems/Disorders - mild asthma, no tx GI History: Reports: Other GI Disorders - constipation Denies: Hx Crohn's Disease, Hx Gall Bladder Disease, Hx Gastroesophageal Reflux Disease, Hx Gastrointestinal Bleed, Hx Irritable Bowel, Hx Ulcer History: Denies: Hx Dialysis, Hx Kidney Infection, Hx Kidney Stones, Hx Renal Disease Sensory History: Denies: Hx Hearing Aid Neurological History: Reports: Hx Headaches, Other Neuro Impairments/Disorders - LYME DISEASE Psychiatric History: Reports: Hx Anxiety, Hx Attention Deficit Hyperactivity Disorder, Hx Depression Denies: Hx Panic Disorder, Hx Inpatient Treatment, Hx Community Mental Health Tx - Cancer History Hx Chemotherapy: No Hx Radiation Therapy: No - Surgical History Surgery Procedure, Year, and Place: TONSILLECTOMY,OVARIAN CYST REMOVAL - Immunization History Date of Tetanus Vaccine: up to date Infectious Disease History: No Infectious Disease History: Denies: Hx Clostridium Difficile, Hx Hepatitis, Hx Human Immunodeficiency Virus (HIV), Hx of Known/Suspected MRSA, Traveled Outside the [place] in Last 30 Days - Family History Known Family History: Positive: Cardiac Disease - mom, Other - Migraines, sister - Social History Alcohol Use: Rare Hx Substance Use: No Substance Use Type: Reports: None Hx Tobacco Use: No Smoking Status (MU): Never Smoked Tobacco Review of Systems Negative: Other - Right foot and ankle pain. Skin: Negative Neurological: Negative Negative: Weakness, Paresthesia, Numbness All Other Systems Reviewed And Are Negative: Yes Physical Exam Triage Information Reviewed: Yes Vital Signs On Initial Exam: Initial Vitals Temp Pulse Resp BP Pulse Ox 98.7 F 102 16 144/87 98 06/13/19 08:03 06/13/19 08:03 06/13/19 08:03 06/13/19 08:03 06/13/19 08:03 Vital Signs Reviewed: Yes Appearance: Positive: Well-Appearing - Pt. sitting on bed in NAD. Mother present. Skin: Positive: Warm, Dry Head/Face: Positive: Normal Head/Face Inspection Eyes: Positive: Normal, EOMI, KATELYN Neck: Positive: Supple Musculoskeletal: Positive: Other - Pain to diffusely to dorsum of right foot and mildly to ankle. Achilles tendon intact. Good pedal pulse. No proximal tib/ fib or knee pain. Neurological: Positive: Normal, CN Intact II-III Psychiatric: Positive: Affect/Mood Appropriate Procedures - Sedation Patient Received Moderate/Deep Sedation with Procedure: No Diagnostics - Vital Signs Vital Signs Temp Pulse Resp BP Pulse Ox 06/13/19 08:03 98.7 F 102 16 144/87 98 - Laboratory Lab Statement: Any lab studies that have been ordered have been reviewed, and results considered in the medical decision making process. Lower Extremity Course/Dx - Course Course Of Treatment: Patient with isolated right foot and ankle injury. X-rays negative per radiology. Jasiel wrap and postop splint placed for comfort. Advised ice and elevation intermittently. Anti-inflammatories for pain as directed. Will follow-up with orthopedics or PCP if pain persists for reevaluation. Patient understands and agrees with plan. - Diagnoses Differential Diagnosis/HQI/PQRI: Positive: Fracture (Closed), Sprain, Strain Provider Diagnoses: Foot sprain Discharge ED - Sign-Out/Discharge Documenting (check all that apply): Patient Departure - Discharge Plan Condition: Good Disposition: HOME Patient Education Materials: Foot Sprain (ED) Referrals: Gerald Montes MD [Primary Care Provider] - Shari Desai MD [Medical Doctor] - Additional Instructions: Follow up with PCP or ortho if pain persist for recheck Wear splint for comfort Ice and elevate Tylenol or Motrin for pain as directed Return to ER if symptoms change or worsen - Billing Disposition and Condition Condition: GOOD Disposition: Home - Attestation Statements Provider Attestation: I was available for consultation for this patient. I did not evaluate the patient or participate in any medical decision making or disposition decisions unless I am specifically named in the chart as having consulted on the patient. If I have consulted on the patient, please see my own ED note on the patient encounter. Whitney Lundberg MD
[2019-06-13 09:41] VITALS: BP 114/66
== END 2019-06-13 09:41 | disposition home or self-care (01) ==
LOC: ED 08:00
DX: S93.601A Unspecified sprain of right foot, initial encounter (principal); M79.671 Pain in right foot; M25.571 Pain in right ankle and joints of right foot; W10.9XXA Fall (on) (from) unspecified stairs and steps, initial encounter; Y92.9 Unspecified place or not applicable
CPT/HCPCS: 99282

== ENCOUNTER 2019-07-10 13:46 | Emergency (ER) | payer OTHER ==
[2019-07-10 14:11] VITALS: BP 134/57
--- NOTE | 2019-07-10 14:19 | UC ---
Throat Pain/Nasal Denny HPI - HPI Summary HPI Summary: 28 yo female presents with sore throat for the last 2 days. She tells me that it hurts to swallow and feels like "razor blades" in her throat. She has not been taking anything OTC for her symptoms. Denies fever, chills, sinus symptoms , rash, sob, chest pain, abdominal pain. She is eating, drinking, and tolerating po well. She mentions that a few days ago she found out her boyfriend has been cheating on her and she is requesting STD testing today. She denies symptoms such as dysuria, vaginal bleeding/discharge/lesions/rashes/itching. LMP was 06/23 - History of Current Complaint Chief Complaint: UCGeneralIllness Stated Complaint: SORE THROAT Time Seen by Provider: 07/10/19 14:18 Hx Obtained From: Patient Hx Last Menstrual Period: Onset/Duration: Sudden Onset Severity: Moderate Pain Intensity: 7 Pain Scale Used: 0-10 Numeric - Allergies/Home Medications Allergies/Adverse Reactions: Allergies Allergy/AdvReac Type Severity Reaction Status Date / Time chocolate flavor Allergy GI Upset Verified 07/10/19 14:11 amoxicillin AdvReac Hives Verified 07/10/19 14:11 Home Medications: Home Medications NK [No Home Medications Reported] 07/10/19 [History Confirmed 07/10/19] PMH/Surg Hx/FS Hx/Imm Hx Psychological History: Anxiety, Depression Other History Of: Negative For: Anticoagulant Therapy - Surgical History Surgical History: Yes Surgery Procedure, Year, and Place: TONSILLECTOMY,OVARIAN CYST REMOVAL - Family History Known Family History: Positive: Cardiac Disease - mom, Other - Migraines, sister - Social History Lives: With Family Alcohol Use: None Substance Use Type: None Smoking Status (MU): Never Smoked Tobacco Household Exposure Type: Cigarettes - Immunization History Most Recent Influenza Vaccination: never Most Recent Tetanus Shot: unk Most Recent Pneumonia Vaccination: never Review of Systems All Other Systems Reviewed And Are Negative: No Constitutional: Positive: Negative Skin: Positive: Negative Eyes: Positive: Negative ENT: Positive: Sore Throat Respiratory: Positive: Negative Cardiovascular: Positive: Negative Gastrointestinal: Positive: Negative Neurological/Mental Status: Positive: Negative Psychological: Positive: Negative Physical Exam - Summary Physical Exam Summary: GENERAL: NAD. WDWN. No pain distress. SKIN: No rashes, sores, lesions, or open wounds. HEENT: Head: AT/NC Eyes: EOM intact. Conjunctiva clear without inflammation or discharge. Ears: Hearing grossly normal. TMs intact, no bulging, erythema, or edema. Nose: Nasal mucosa pink and moist. NTTP maxillary and frontal sinus. Throat: Posterior oropharynx without exudates, erythema. No tonsils. Uvula midline. NECK: Supple. Nontender. No lymphadenopathy. CHEST: CTAB. No r/r/w. No accessory muscle use. Breathing comfortably and in no distress. CV: RRR. Pulses intact. Cap refill <2seconds ABDOMEN: Soft. NTTP. No distention or guarding. No CVA tenderness. Bowel sounds present NEURO: Alert. PSYCH: Age appropriate behavior. Triage Information Reviewed: Yes Vital Signs: Initial Vital Signs Temp 98.4 F 07/10/19 14:08 Pulse 65 07/10/19 14:08 Resp 16 07/10/19 14:08 BP 134/57 07/10/19 14:08 Pulse Ox 100 07/10/19 14:08 Laboratory Tests 07/10/19 07/10/19 07/10/19 14:19 14:48 14:50 POC Urine Color Light yellow POC Urine Clarity Clear POC Urine pH 6.0 POC Ur Specif [place] 1.010 POC Urine Protein Negative POC Ur Glucose (UA) Negative POC Urine Ketones Negative POC Urine Blood Negative POC Urine Nitrite Negative POC Urine Bilirubin Negative POC Urine Urobilinogen 0.2 POC U Leukocyte Esteras Negative POC Ur Test Negative Influenza A (Rapid) Influenza B (Rapid) Group A Strep Rapid Negative 07/10/19 15:00 POC Urine Color POC Urine Clarity POC Urine pH POC Ur Specif [place] POC Urine Protein POC Ur Glucose (UA) POC Urine Ketones POC Urine Blood POC Urine Nitrite POC Urine Bilirubin POC Urine Urobilinogen POC U Leukocyte Esteras POC Ur Test Influenza A (Rapid) Negative Influenza B (Rapid) Negative Group A Strep Rapid Vital Signs Reviewed: Yes Throat Pain/Nasal Course/Dx - Course Course Of Treatment: POC strep and flu negative. UA and urine negative. Suspect viral illness. She is requesting blood work for STD testing today given her partner's unfaithfulness. Will draw for CBC, HIV, hepatitis, herpes, and RPR. Urine culture send for GC/C - Differential Dx/Diagnosis Provider Diagnosis: Sore throat, Screen for STD (sexually transmitted disease) Discharge ED - Sign-Out/Discharge Documenting (check all that apply): Patient Departure All imaging exams completed and their final reports reviewed: No Studies - Discharge Plan Condition: Stable Disposition: HOME Patient Education Materials: Pharyngitis (ED) Referrals: Gerald Montes MD [Primary Care Provider] - Additional Instructions: Your urine and blood will be sent for further testing from today's visit. We should have results in 2-3 days, if you have not heard from our office - please call to ask about your results. Your symptoms are likely from a viral infection. Viral infections do not respond to antibiotics and are limited to the treatment of symptoms. Viral infections typically run their course in 7-10 days. Drink plenty of fluids, especially if you are running any fever. Use salt water gargles several times a day. Take over the counter acetaminophen (Tylenol) or ibuprofen (Advil, Motrin) according to directions as needed for pain or fever. You may also use Chloraseptic spray or Cepacol lonzenges according to directions which contain a numbing medication and can provide some temporary relief from a sore throat. Return here or follow up with your primary care provider in 7 days if symptoms persist. - Billing Disposition and Condition Condition: STABLE Disposition: Home - Attestation Statements Provider Attestation: This patient was not seen by me. I was available for consult. Chart reviewed. AHMET
[2019-07-10 15:11] LABS: Influenza A Molecular Negative (Negative); Influenza B Molecular Negative (Negative)
[2019-07-10 19:06] LABS: ABS Basophils 0.1 10^3/ul (0-0.2); ABS Eosinophils 0.1 10^3/ul (0-0.6); ABS Lymphocytes 2.4 10^3/ul (1.0-4.8); ABS Monocytes 0.6 10^3/ul (0-0.8); ABS Neutrophils 3.6 10^3/ul (1.5-7.7); Eosinophil % 1.5 %; Hematocrit 42 % (35-47); Hemoglobin 14.1 g/dL (12.0-16.0); Lymphocyte % 35.5 %; Mean Corpuscular HGB Conc 34 g/dL (31-36); Mean Corpuscular Hemoglobin 32 pg (27-31); Mean Corpuscular Volume 94 fL (80-97); Mean Platelet Volume 9.2 fL (7.4-10.4); Platelet Count 259 10^3/uL (150-450); Red Blood Count 4.47 10^6 /uL (3.70-4.87); Red Cell Distribution Width 12 % (10-15); White Blood Count 6.6 10^3/uL (3.5-10.8)
[2019-07-10 19:44] LABS: Hepatitis B Surface Antigen Nonreactive (Nonreactive)
[2019-07-10 19:59] LABS: HIV 4th Generation Nonreactive (Nonreactive)
[2019-07-10 20:01] LABS: Hepatitis C Antibody Negative (Negative)
[2019-07-11 13:18] LABS: Chlamydia trachomatis NAA Negative (Negative); Neisseria gonorrhoeae (GC) NAA Negative (Negative)
--- NOTE | 2019-07-12 08:12 | UC ---
- Progress Note Progress Note: NEg syphillis, Hep B, Hep C, HIV RN to please notify pt results alyse 07/12/19 Course/Dx - Diagnoses Provider Diagnoses: Sore throat, Screen for STD (sexually transmitted disease) Discharge ED - Sign-Out/Discharge Documenting (check all that apply): Post-Discharge Follow Up All imaging exams completed and their final reports reviewed: No Studies - Discharge Plan Condition: Stable Disposition: HOME Patient Education Materials: Pharyngitis (ED) Referrals: Gerald Montes MD [Primary Care Provider] - Additional Instructions: Your urine and blood will be sent for further testing from today's visit. We should have results in 2-3 days, if you have not heard from our office - please call to ask about your results. Your symptoms are likely from a viral infection. Viral infections do not respond to antibiotics and are limited to the treatment of symptoms. Viral infections typically run their course in 7-10 days. Drink plenty of fluids, especially if you are running any fever. Use salt water gargles several times a day. Take over the counter acetaminophen (Tylenol) or ibuprofen (Advil, Motrin) according to directions as needed for pain or fever. You may also use Chloraseptic spray or Cepacol lonzenges according to directions which contain a numbing medication and can provide some temporary relief from a sore throat. Return here or follow up with your primary care provider in 7 days if symptoms persist. - Billing Disposition and Condition Condition: STABLE Disposition: Home
== END 2019-07-10 15:55 | disposition home or self-care (01) ==
LOC: UCEAST 13:46
DX: Z11.3 Encounter for screening for infections with a predominantly sexual mode of transmission (principal); J02.9 Acute pharyngitis, unspecified; Z91.02 Food additives allergy status; Z88.0 Allergy status to penicillin
CPT/HCPCS: 36415; 80074; 81003; 84702; 85025; 86695; 86696; 86780; 87389; 87491; 87591; 87651; 99211; G0463